=== PATIENT | male | born 1990 | race Caucasian/White ===

== ENCOUNTER 2016-09-09 18:01 | Emergency (ER) | payer SELFPAY ==
[2016-09-09 18:15] VITALS: TEMP 98.6
--- NOTE | 2016-09-09 20:52 | UCPHY ---
H & P Time Seen by Provider: 09/09/16 19:33 Patient Type: Established HPI/ROS: The patient presents with a strange feeling in his neck. He explains that he had a burst fracture at C5 in his cervical spine 7 years ago with partial corpectomy and C 4 through [address] Rivero-neurosurgeon in [place]. He has a feeling of laxity at the area corresponding to the fusion site in his neck and he feels that his trapezius and neck muscles are tight as a result of trying to compensate for this feeling of loose [place] neck. The symptoms started about 1 week ago without antecedent trauma and he reports minimal intermittent paresthesias to both hands symmetrically on occasions since the onset of the symptoms this has the about his symptoms. He notes no clear exacerbating factors for the symptoms except for mild worsening with movement of his head. He denies any pain at this time to his neck. ROS: No fevers or chills. He reports no headache. He denies any other HEENT complaints including no recent trauma. He reports no focal weakness. No bowel or bladder incontinence. 7 point ROS is otherwise negative. Past Medical/Surgical History: C5 burst fracture with partial corpectomy 7 years ago-Dr. Rivero Smoking Status: Former smoker Physical Exam: Physical Exam Vital signs are normal. General: No acute distress HEENT: Atraumatic. Eyes: Pupils equal and react to light. Extraocular motions are intact. Neck: No midline tenderness. He has mild limitation range of motion in flexion extension due to discomfort. Lungs: No respiratory distress. Cardiac: Brisk capillary refill is intact throughout. Skin: No rash or pallor. Neuro: GCS of 15. He maintains normal light touch sensory exam bilateral upper and lower extremities. He has 2+ symmetric brachioradialis, biceps, triceps, patellar and Achilles DTRs bilaterally. She maintains full strength and hand intrinsic muscles with AB duction and also full strength in flexion extension of the fingers bilaterally. Initial differential diagnosis: Hardware failure, bony lesion, disc herniation , anxiety Constitutional: Initial Vital Signs Temperature (C) 37 C 09/09/16 18:12 Heart Rate 74 09/09/16 18:12 Respiratory Rate 15 09/09/16 18:12 Blood Pressure 141/85 H 09/09/16 18:12 O2 Sat (%) 96 09/09/16 18:12 O2 Delivery Mode Room Air Allergies/Adverse Reactions: Shellfish *RETIRED-01/26/12 [Shellfish] Allergy (Severe, Verified 03/23/15 08:49 ) Anaphylaxis Home Medications: Medication Instructions Recorded Miscellaneous Medical Supply [NO 02/13/12 HOME MEDS] MDM/Departure - MDM Diagnostics: Cervical spine x-ray: Hardware intact and in appropriate position with no evidence of acute injury or acute soft tissue swelling by my interpretation. Imaging: Discussed imaging studies w/ order caller Radiologist ED Course/Re-evaluation: I discussed the case with the on-call for Dr. elise since her surgery group-[facility] . She will facilitate follow-up by: The patient to arrange for follow-up. Discussion: Patient here with vague symptoms in his neck with no radicular findings on exam and a normal appearing plain x-ray warranting follow up with Neurosurgery for further evaluation. - Depart Disposition: Home, Routine, Self-Care Clinical Impression: Neck symptoms Condition: Good Instructions: Neck Pain (ED) Additional Instructions: Diagnosis: Neck symptoms Plan: Neurosurgery will call you to arrange follow-up appointment for further evaluation. Tonight your x-rays look good with no neuro deficits or other concerning findings. Go to the emergency department if you have any abrupt significant worsening of your symptoms Avoid any contact sports and to follow up with Neurosurgery. Referrals: NONE *PRIMARY CARE P,. [Primary Care Provider] - As per Instructions Marguerite Thorpe PAC [Physician Hatchery Manager] - As per Instructions - PQRS PQRS Measurement: NA
[2016-09-09 21:25] VITALS: BP 138/75; PULSE 75; RESP 16; O2SAT 95
== END 2016-09-09 21:26 | disposition home or self-care (01) ==
LOC: CED 18:01
DX: R29.898 Other symptoms and signs involving the musculoskeletal system (principal)
CPT/HCPCS: 72050-PO; 99214-PO; G0463-PO